=== PATIENT | male | born 1995 | race African-American/Black ===

== ENCOUNTER 2017-05-24 17:20 | Emergency (ER) | payer OTHER, MEDICAID ==
[~2017-05-24] VITALS: Ht 190.5 cm; Wt 86.0 kg
[2017-05-24] MEDS ORDERED: SODIUM CHLORIDE 0.9% 500 ML IV ONE (18:25)
[2017-05-24] MEDS ORDERED: FLUORESCEIN SODIUM 1MG/STRIP RIGHTEYE ONE (18:30)
[2017-05-24 20:02] VITALS: BP 105/69
== END 2017-05-24 20:04 | disposition home or self-care (01) ==
LOC: ER 18:34
DX: H57.11 Ocular pain, right eye (principal); F12.10 Cannabis abuse, uncomplicated; H53.8 Other visual disturbances
CPT/HCPCS: 96360; 99284; J7040

== ENCOUNTER 2022-02-11 04:40 | Emergency (ER) | payer MEDICAID, OTHER ==
[~2022-02-11] VITALS: Ht 193 cm; Wt 93.0 kg
[2022-02-11 09:12] VITALS: BP 121/75
== END 2022-02-11 09:12 | disposition home or self-care (01) ==
LOC: ER 04:40
DX: B34.9 Viral infection, unspecified (principal); R05.9 Cough, unspecified; M79.18 Myalgia, other site; F12.10 Cannabis abuse, uncomplicated
CPT/HCPCS: 71045; 87804; 99284